=== PATIENT | female | born 1965 | race Caucasian/White ===

== ENCOUNTER → 2017-05-21 | Outpatient (CLI) | payer MEDICARE, OTHER ==
[~2017-05-21] MED LIST: ALB/IPRATROPIUM/1 EA INH; ALBUTEROL17 G1 IH; ALBUTEROL17 GM INH; AMARYL2 MG PO; K-DUR10 MEQ PO; LASIX PO; LIPITOR40 MG PO; METFORMIN PO; MOBIC15 MG PO; OXYGEN; PREDNISONE50 MG; PREDNISONE50 MG PO; SPIRIVA18 MCG INH; ZANTAC PO; ZESTRIL5 MG PO; ZITHROMAX1 G/PKT PO
--- NOTE | ~2017-05-21 | CR97 ---
[facility] A Service of [facility] RADIOLOGY TEXT RESULTS PATIENT: LENNIE NEWSOME LOCATION: [facility] : 65 UNIT #: [id number] AGE: [address]: Juan Rincon III, MD SEX: F ORDER DR: [id number] [address] [address] [id number] O MR#: [id number] Acc #: [id number] NAME: LENNIE NEWSOME : 1965 SEX: F STUDY DATE/TIME: 05/21/2017 8:14 UNIT: [facility] ROOM: STUDY DESCRIPTION: CR Esophagram Attending Physician: Juan Rincon III, M.D. Referring Physician: Juan Rincon III, M.D. Ordering Physician: Juan Rincon III, M.D. Primary Care Physician: Seth Ma M.D. MEDICAL IMAGING REPORT This report is preliminary unless electronic signature is present EXAM Single contrast barium esophagram INDICATION This is a preoperative examination prior to laparoscopic gastric banding surgery. TECHNIQUE Patient was administered thin barium. Multiple fluoroscopic images were obtained in multiple obliquities. FINDINGS Initial senior investment analyst image was unremarkable. There was limited distension of the upper esophagus despite multiple attempts, but distal esophagus appeared unremarkable with no evidence of stricture or mass lesion. No hiatal hernia was seen. Patient does appear to have some spontaneous reflux. Total fluoroscopy time was 0.4 minutes and a total of 12 fluoroscopic images were obtained. IMPRESSION Limited distension of the upper esophagus despite multiple attempts. Potentially if the patient has any upper esophageal symptomatology, double contrast barium esophagram could be considered for additional evaluation, as underlying stricture/lesion cannot be excluded. Patient's distal esophagus appears unremarkable. No hiatal hernia was seen. Dictated by... Nai Irwin M.D. [facility] A Service of [facility] RADIOLOGY TEXT RESULTS PATIENT: LENNIE NEWSOME LOCATION: [facility] : 65 UNIT #: [id number] AGE: [address]: Juan Rincon III, MD SEX: F ORDER DR: THIS IS AN ELECTRONICALLY VERIFIED REPORT Nai Irwin M.D. at 05/24/2017 3:55 PM AFF/mariella TD: 05/24/2017 08:09 JOB #: [id number] MEDICAL IMAGING REPORT Page 1 of 1 COPY
--- NOTE | ~2017-05-21 | CR63 ---
[facility] A Service of [facility] RADIOLOGY TEXT RESULTS PATIENT: LENNIE NEWSOME LOCATION: [facility] : 65 UNIT #: [id number] AGE: [address]: Juan Rincon III, MD SEX: F ORDER DR: [id number] [facility] [address] [place], [place] [address] [id number] O MR#: [id number] Acc #: [id number] NAME: LENNIE NEWSOME : 1965 SEX: F STUDY DATE/TIME: 05/21/2017 7:38 UNIT: [facility] ROOM: STUDY DESCRIPTION: CR Chest 2 View Attending Physician: Juan Rincon III, M.D. Referring Physician: Juan Rincon III, M.D. Ordering Physician: Juan Rincon III, M.D. Primary Care Physician: Seth Ma M.D. MEDICAL IMAGING REPORT This report is preliminary unless electronic signature is present EXAM Chest, PA and lateral 05/21/2017 HISTORY Morbid obesity. Shortness of breath today. Preop laparoscopic gastric banding. COPD and diabetes. FINDINGS There is mild cardiac enlargement. There is poor inspiratory result with discoid atelectasis at the lung bases. Lungs are otherwise clear. There are no pleural effusions. IMPRESSION Mild cardiac enlargement. No active pulmonary disease. Dictated by... Jimmy Brown M.D. THIS IS AN ELECTRONICALLY VERIFIED REPORT Jimmy Brown M.D. at 05/21/2017 5:04 PM LUISA/dexter TD: 05/21/2017 12:57 JOB #: [id number] MEDICAL IMAGING REPORT Page 1 of 1 COPY
--- NOTE | ~2017-05-21 | EKG ---
PATIENT: LENNIE NEWSOME UNIT #: [id number] Ventricular Rate: 101 BPM Atrial Rate: 101 BPM P-R Interval: 146 ms QRS Duration: 94 ms Q-T Interval: 358 ms QTC Calculation(Bezet): 464 ms P Saxe: 45 degrees Calculated R Saxe: 31 degrees Calculated T Saxe: 31 degrees Diagnosis Line: Sinus tachycardia Diagnosis Line: Low voltage QRS Diagnosis Line: Borderline ECG Diagnosis Line: When compared with ECG of 04-SEP-2012 07:51, Diagnosis Line: No significant change was found Diagnosis Line: Confirmed by ELLA NAVA MD ([id number]) on Diagnosis Line: 05/22/2017 2:53:41 PM INTERPRETING MD: MARGOTH
[2017-05-21 08:59] LABS: HEMATOCRIT 34.4 % (35.0-45.0); HEMOGLOBIN 10.8 gm/dL (12.0-16.0); MEAN CELL VOLUME 85.2 FL (83-96); MEAN CORPUSCULAR HEMOGLOBIN 26.7 PG (28-34); MEAN CORPUSCULAR HGB CONC 31.3 g/dL (30-36); MEAN PLATELET VOLUME 7.1 FL (6.5-11.5); RED BLOOD COUNT 4.04 X10e (3.90-5.30); RED CELL DISTRIBUTION WIDTH 15.8 % (11.0-15.5); WHITE BLOOD COUNT 11.3 X10e3 (4.0-10.5)
[2017-05-21 10:08] LABS: ALBUMIN SERUM 3.7 g/dL (3.5-5.0); BILIRUBIN,TOTAL 0.4 mg/dL (0.2-2.0); BUN/CREATININE RATIO 14.28; CALCIUM SERUM 9.1 mg/dL (8.4-10.2); CREATININE SERUM 0.7 mg/dL (0.6-1.4); GLOM FILT RATE Estimated 100.3 mL/min (>60); POTASSIUM 4.4 mmol/L (3.5-5.1); PROTEIN TOTAL SERUM 7.3 g/dL (6.0-8.3)
== END | disposition home or self-care (01) ==
LOC: CRAD 07:23 → CAMB 08:30
PROVIDERS: Surgery
DX: Z01.818 Encounter for other preprocedural examination (principal); I51.7 Cardiomegaly; E66.01 Morbid (severe) obesity due to excess calories; R00.0 Tachycardia, unspecified
CPT/HCPCS: 36415; 71020; 74220; 80053; 80061; 84443; 85027; 93005

== ENCOUNTER → 2017-06-02 | Day surgery (SDC) | payer MEDICARE, OTHER ==
--- NOTE | ~2017-06-02 | CR7 ---
[facility] A Service of [facility] RADIOLOGY TEXT RESULTS PATIENT: LENNIE NEWSOME LOCATION: [facility] : 65 UNIT #: [id number] AGE: [address]: Juan Rincon III, MD SEX: F ORDER DR: [id number] [place], [place] [address] [id number] O MR#: [id number] Acc #: [id number] NAME: LENNIE NEWSOME : 1965 SEX: F STUDY DATE/TIME: 06/02/2017 8:33 UNIT: [facility] ROOM: STUDY DESCRIPTION: CR Abdomen Single AP View Attending Physician: Juan Rincon III, M.D. Ordering Physician: Juan Rincon III, M.D. Primary Care Physician: Generic Doctor Not In System MEDICAL IMAGING REPORT This report is preliminary unless electronic signature is present EXAM KUB INDICATION Postop laparoscopic gastric band placement. FINDINGS Patient does have a laparoscopic gastric band. Phi angle is roughly 74.3 degrees. Only portions of the catheter tubing are identified. Bowel gas pattern appears normal. IMPRESSION Postoperative changes as noted above. Phi angle of 74.3 degrees Dictated by... Nai Iriwn M.D. THIS IS AN ELECTRONICALLY VERIFIED REPORT Nai Irwin M.D. at 06/02/2017 3:00 PM CHRISTELLE/tamiko TD: 06/02/2017 13:24 JOB #: [id number] MEDICAL IMAGING REPORT Page 1 of 1 COPY
--- NOTE | ~2017-06-02 | OR ---
Unit #: [id number] #: [id number] Patient: LENNIE NEWSOME [id number] [facility] [address] [place], [place] [address] [id number] O MR#: [id number] NAME: LENNIE NEWSOME ROOM: Date of Procedure: 06/02/2017 Admission Date: 06/02/2017 Surgeon: Juan Rincon III, M.D. : 1965 Attending Physician: Juan Rincon III, M.D. Primary Care Physician: Generic Doctor Not In System OPERATIVE REPORT PREOPERATIVE DIAGNOSIS Chronic morbid obesity. POSTOPERATIVE DIAGNOSIS Chronic morbid obesity. SECONDARY DIAGNOSIS Anterior paraesophageal hernia. PROCEDURES PERFORMED Laparoscopic adjustable gastric banding (AP large with regular port) and laparoscopic paraesophageal hernia repair. INK GRINDER Dr. Fernando Gorman. SPECIMENS None. COMPLICATIONS None apparent. ESTIMATED BLOOD LOSS Minimal. INDICATIONS FOR PROCEDURE This is a 51-year-old lady, who has chronic morbid obesity with a BMI of 64 and associated comorbidities of diabetes and sleep apnea. She has been through the bariatric program at [facility] and understands risks and benefits of the procedure. DESCRIPTION OF PROCEDURE After consent was obtained, including the risks and benefits of slippage, erosion, port dysfunction, and possible failure of weight loss due to noncompliance, the patient was taken to the operating room and placed in the supine position. General anesthetic was administered and the abdomen was prepped and draped in standard surgical fashion. I began by making a 2 cm incision just above and to the left of the umbilicus. I used a Visiport to enter the peritoneal cavity without any difficulty. C02 pneumoperitoneum was then established. Next, I placed a 5 mm port in the right upper quadrant, a 5 mm Anusha liver retractor in Unit #: [id number] #: [id number] Patient: LENNIE NEWSOME the subxiphoid region to provide exposure of the gastroesophageal junction. Next, a 10 mm port was placed in the left upper quadrant and a 5 mm port was placed in the left lateral subcostal region. I began by performing an examination of the GE junction to evaluate for a hiatal hernia. We then scored the peritoneal attachments overlying the angle of His. I then opened up the clear space in the gastrohepatic ligament, and then using 2 blunt graspers, I identified the small fat pad crossing over the right crura. I swept the fat anterior to the crura off the crura and using the pars flaccida, I created a retrogastric tunnel where the blunt grasper exited at the angle of His. Once I had made this tunnel safely, I then inserted an Allergan AP band into the abdominal cavity. This adjustable gastric band was then place around the upper part of the stomach and fastened and buckled anteriorly. We then tacked the lateral fundus over the band to the proximal pouch with 2 interrupted 0 Ethibond sutures. I then used a third stitch to imbricate the excess anterior stomach by going from the lesser curvature up towards where the last stitch was placed. We then had excellent hemostasis. I removed the Anusha liver retractor. We then removed the port tubing through the initial port incision. The rest of the ports were removed, and the pneumoperitoneum was released. I then left a small tail on the tubing. We then attached the port to the excess band tubing. We placed a piece of Prolene mesh along the back side of the port and used a Prolene stitch to anchor this mesh in place. We then trimmed the excess mesh so that just a small footprint of mesh was in place behind the port. I then inserted the tubing back into the abdominal cavity, and we placed the port into a small pocket that was made just inferior to where our initial port incision was made. The mesh was in direct contact with the fascia, and this will scar in place to hold the port in place. We then injected all the port sites with 0.25% plain Marcaine, and I reapproximated the skin edges with interrupted 4-0 Vicryl subcuticular sutures. Steri-strips were then applied. The patient tolerated the procedure without any problems and returned to the recovery room in stable condition. ADDENDUM After exposure of the GE junction, the patient was noted to have a small- to medium-sized anterior paraesophageal hernia. I scored the phrenoesophageal ligament, reduced the hernia defect and after identifying both the right and left crura, I reapproximated the defect with an interrupted 0 Ethibond [id number] suture. I then proceeded with the case as listed above. Dictated by... Juan Rincon III, M.D. VCL/joe TD: 06/03/2017 07:34 JOB #: [id number] Unit #: [id number] #: [id number] Patient: LENNIE NEWSOME OPERATIVE REPORT Page 1 of 1 X Juan Rincon III, MD X PROCEDURE OPERATIVE NOTE
== END | disposition home or self-care (01) ==
LOC: CSUR 05:20
DX: E66.01 Morbid (severe) obesity due to excess calories (principal); K44.9 Diaphragmatic hernia without obstruction or gangrene; E11.9 Type 2 diabetes mellitus without complications; G47.30 Sleep apnea, unspecified; E78.00 Pure hypercholesterolemia, unspecified; F32.9 Major depressive disorder, single episode, unspecified; I50.9 Heart failure, unspecified; K21.9 Gastro-esophageal reflux disease without esophagitis; J43.9 Emphysema, unspecified; Z68.43 Body mass index [BMI] 50.0-59.9, adult; Z72.4 Inappropriate diet and eating habits; Z80.3 Family history of malignant neoplasm of breast; Z87.891 Personal history of nicotine dependence; Z88.8 Allergy status to other drugs, medicaments and biological substances; Z88.6 Allergy status to analgesic agent; Z91.040 Latex allergy status; Z79.84 Long term (current) use of oral hypoglycemic drugs; Z79.51 Long term (current) use of inhaled steroids; Z79.899 Other long term (current) drug therapy; Z99.81 Dependence on supplemental oxygen; Z90.49 Acquired absence of other specified parts of digestive tract; Z98.890 Other specified postprocedural states
CPT/HCPCS: 74000; 82947; C1781; J0330; J0690; J1650; J1885; J2250; J2405; J2710; J3010; L8699